=== PATIENT | male | born 1945 | race Caucasian/White ===

== ENCOUNTER 2016-10-18 15:23 | Inpatient (IN) | payer MEDICARE, OTHER ==
[~2016-10-18] VITALS: Ht 160 cm; Wt 93.0 kg
[~2016-10-18 15:23] MED LIST: CELE200C; FINA5TAB4; GEMF600T3 PO; HYOS0.12; INDO50CA82 PO; LISI10TA6; LOPE2CAP PO; OMEP20TA44; SERT-274 PO; TAM04C; TRAM50TA2 PO
[2016-10-18 16:06] LABS: Urine RBC None Seen /hpf (0 - 3)
[2016-10-18 16:15] LABS: Basophils # (auto) 0.1 uL; Basophils % (auto) 0.7 % (0.0-2.0); Eosinophils # (auto) 0.3 uL; Eosinophils % (auto) 3.5 % (0.0-7.0); Hematocrit 41.3 % (41.0-53.0); Hemoglobin 13.9 g/dL (13.5-17.5); Lymphocytes # (auto) 1.2 uL; Mean Corpuscular Hgb Conc. 33.5 g/dL (32.0-36.0); Mean Corpuscular Volume 89.4 fL (80.0-100.0); Mean Platelet Volume 10.6 fL (7.4-10.4); Monocytes # (auto) 0.4 uL; Monocytes % (auto) 5.7 % (0.0-12.0); Neutrophils # (auto) 5.9 uL; Neutrophils % (auto) 75.1 % (37.0-80.0); Platelet Count (auto) 274 10^3/uL (140-450); Red Cell Distribution Width 14.2 % (11.6-16.0); White Blood Cell 7.9 10^3/uL (4.4-10.8)
[2016-10-18 16:22] LABS: Albumin 4.4 g/dL (3.4-5.0)
[2016-10-18 16:24] LABS: BUN/Creatinine Ratio 22.4
[2016-10-18 16:26] LABS: Bilirubin, Total 0.5 mg/dL (0.2-1.0)
[2016-10-18 16:46] LABS: Urine Bilirubin Negative (Negative); Urine Blood Negative /uL (Negative); Urine Color Yellow (Yellow); Urine Glucose Normal (Normal); Urine Hyaline Cast FEW /lpf (0 - 2); Urine Ketone Negative (Negative); Urine Mucus FEW (None Seen); Urine Nitrite Negative (Negative); Urine Urobilinogen Normal (Negative); Urine pH 5.5 (5.0-8.0)
[2016-10-18] MEDS ORDERED: HYDROmorphone HCL 2 MG/ML VL IV ONE (22:30)
[2016-10-18] MEDS ORDERED: ONDANSETRON HCL 4 MG/2 ML VIAL IV ONE (22:30)
[2016-10-19] MEDS ORDERED: SODIUM CHLORIDE 0.9% 1,000 ML IV SCH (00:55)
[2016-10-19] MEDS ORDERED: traMADol HCL 50 MG TAB PO PRN (01:00)
[2016-10-19] MEDS ORDERED: LOPERAMIDE HCL 2 MG CAP PO PRN (01:00)
[2016-10-19] MEDS ORDERED: ONDANSETRON HCL 4 MG/2 ML VIAL IV ONE ×2 (01:15)
[2016-10-19] MEDS ORDERED: ASPirin 81 mg TAB PO ONE (01:15)
[2016-10-19] MEDS ORDERED: ONDANSETRON HCL 4 MG/2 ML VIAL IV PRN (01:15)
[2016-10-19] MEDS ORDERED: MORPHINE SULFATE 4 MG/ML SYRG IV PRN (01:15)
[2016-10-19] MEDS ORDERED: MORPHINE SULFATE 4 MG/ML SYRG IV ONE (01:15)
[2016-10-19 05:16] VITALS: BP 144/77
[2016-10-19 09:00] VITALS: BP 146/98
[2016-10-19] MEDS ORDERED: PANTOPRAZOLE SODIUM 40 MG/10 ML VIAL IV SCH (10:00)
[2016-10-19] MEDS ORDERED: INDOMETHACIN 25 MG CAP PO SCH (10:00)
[2016-10-19] MEDS ORDERED: FINASTERIDE 5 MG TAB PO SCH (10:00)
[2016-10-19] MEDS ORDERED: LISINOPRIL 20 MG TAB PO SCH (10:00)
[2016-10-19] MEDS ORDERED: ENOXAPARIN SOD 40 MG/0.4 ML SYRINGE SC SCH (10:00)
[2016-10-19] MEDS ORDERED: GEMFIBROZIL 600 MG TAB PO SCH (10:00)
[2016-10-19] MEDS ORDERED: SERTRALINE HCL 50 MG TAB PO SCH (10:00)
[2016-10-19] MEDS ORDERED: ENOXAPARIN SOD 30 MG/0.3 ML SYRINGE SC SCH (10:00)
[2016-10-19] MEDS ORDERED: COLCHICINE 0.6 MG TAB/CAP PO SCH (10:00)
[2016-10-19 13:00] VITALS: BP 160/90
[2016-10-19 14:48] VITALS: BP 158/92
[2016-10-19] MEDS ORDERED: TAMSULOSIN HYDROCHLORIDE 0.4 MG CAP PO SCH (18:00)
== END 2016-10-19 16:42 | disposition home or self-care (01) | DRG 395 ==
LOC: ER 15:24 → OVERFLOW 15:25 → WEST WING 10-19 01:45
PROVIDERS: ADMIT Family Medicine; ATTEND Internal Medicine
DX: K42.9 Umbilical hernia without obstruction or gangrene (principal); I10 Essential (primary) hypertension; E78.5 Hyperlipidemia, unspecified; F32.9 Major depressive disorder, single episode, unspecified; F41.9 Anxiety disorder, unspecified; G47.30 Sleep apnea, unspecified; J44.9 Chronic obstructive pulmonary disease, unspecified; M06.9 Rheumatoid arthritis, unspecified; K40.20 Bilateral inguinal hernia, without obstruction or gangrene, not specified as recurrent; M10.9 Gout, unspecified; M19.90 Unspecified osteoarthritis, unspecified site; N40.0 Benign prostatic hyperplasia without lower urinary tract symptoms; N50.819 Testicular pain, unspecified; Z87.442 Personal history of urinary calculi; Z79.899 Other long term (current) drug therapy; Z88.0 Allergy status to penicillin; Z98.890 Other specified postprocedural states; Z68.36 Body mass index [BMI] 36.0-36.9, adult
CPT/HCPCS: 36415; 74176; 80053; 81001; 82150; 83690; 84484; 85025; 85049; 93005; 96374; 96375; 96376; C9113; J2405

== ENCOUNTER → 2016-11-21 | Outpatient (CLI) | payer MEDICARE, OTHER ==
[~2016-11-21] VITALS: Ht 160 cm; Wt 92.5 kg
[~2016-11-21] MED LIST changes: +ADENOSINE 78 MG in GIVE UN-DILUTED 0 ML IV ONE; +ALBUTEROL SULF 2.5 MG/0.5ML(0.5%) NEB SOLN ONE; +AMINOPHYLLINE 250 MG/10 ML VL IV ONE; +IPRATROPIUM BROM 0.5 MG/2.5ML INH SOL ONE
== END | disposition home or self-care (01) ==
LOC: XY 07:46
PROVIDERS: ATTEND Internal Medicine Cardiovascular Disease
DX: Z01.818 Encounter for other preprocedural examination (principal); I34.2 Nonrheumatic mitral (valve) stenosis; I35.0 Nonrheumatic aortic (valve) stenosis
CPT/HCPCS: 78452; 93017; 93306; A9500; J0153; J0280

== ENCOUNTER → 2016-12-03 | Outpatient (CLI) | payer MEDICARE, OTHER ==
[~2016-12-03] MED LIST changes: -ADENOSINE 78 MG in GIVE UN-DILUTED 0 ML IV ONE; +ALBUAER3 IN; -ALBUTEROL SULF 2.5 MG/0.5ML(0.5%) NEB SOLN ONE; -AMINOPHYLLINE 250 MG/10 ML VL IV ONE; +AMLO10TA2 PO; -FINA5TAB4; +FINA5TAB4 OR; -HYOS0.12; +HYOS0.12 OR; -IPRATROPIUM BROM 0.5 MG/2.5ML INH SOL ONE; -LISI10TA6; +LISI10TA6 OR; -OMEP20TA44; +OMEP20TA44 OR; -TAM04C; +TAM04C OR
[2016-12-03 13:06] LABS: Basophils # (auto) 0.1 uL; Basophils % (auto) 1.1 % (0.0-2.0); Eosinophils # (auto) 0.3 uL; Eosinophils % (auto) 5.8 % (0.0-7.0); Hematocrit 37.1 % (41.0-53.0); Lymphocytes # (auto) 1.2 uL; Lymphocytes % (auto) 22.8 % (10.0-50.0); Mean Corpuscular Volume 88.6 fL (80.0-100.0); Mean Platelet Volume 10.7 fL (7.4-10.4); Monocytes # (auto) 0.4 uL; Monocytes % (auto) 7.9 % (0.0-12.0); Neutrophils # (auto) 3.2 uL; Neutrophils % (auto) 62.4 % (37.0-80.0); Platelet Count (auto) 238 10^3/uL (140-450); Red Cell Distribution Width 14.6 % (11.6-16.0); White Blood Cell 5.2 10^3/uL (4.4-10.8)
[2016-12-03 13:20] LABS: INR 1.03 (0.9-1.15); Partial Thromboplastin Time 28.1 sec (22.64-33.71); Prothrombin Time 10.6 sec (9.37-12.3)
[2016-12-03 13:29] LABS: Urine Bilirubin Negative (Negative); Urine Blood Negative /uL (Negative); Urine Color Yellow (Yellow); Urine Glucose Normal (Normal); Urine Ketone Negative (Negative); Urine Nitrite Negative (Negative); Urine RBC 1 /hpf (0 - 3); Urine Urobilinogen Normal (Negative)
[2016-12-03 13:50] LABS: Albumin 4.2 g/dL (3.4-5.0); BUN/Creatinine Ratio 22.5; Bilirubin, Total 0.3 mg/dL (0.2-1.0); Calcium 9.3 mg/dL (8.5-10.1); Potassium 4.1 mmol/L (3.5-5.1); Total Protein 7.7 g/dL (6.4-8.2)
== END | disposition home or self-care (01) ==
LOC: LAB 11:05
PROVIDERS: ATTEND Surgery
DX: Z01.818 Encounter for other preprocedural examination (principal)
CPT/HCPCS: 36415; 80053; 81001; 85025; 85610; 85730

== ENCOUNTER → 2016-12-05 | Day surgery (SDC) | payer MEDICARE, OTHER ==
[~2016-12-05] VITALS: Ht 160 cm; Wt 95.3 kg
[~2016-12-05] MED LIST changes: +ALBUTEROL SULF 2.5 MG/0.5ML(0.5%) NEB SOLN NEB STA; +ALBUTEROL SULF 2.5 MG/0.5ML(0.5%) NEB SOLN ONE; +BUPIVACAINE 0.5% MPF INJ 30ML SDV IJ ONE; -CELE200C; +DEXAMETHASONE SOD PHOS 10MG/1ML VIAL INJ IV ONE; +ETOMIDATE (2MG/ML) 20ML VIAL IV ONE; +GLYCOPYRROLATE 0.2 MG/ML 1ML VIAL IV ONE; +HYDROmorphone HCL 2 MG/ML VL IV PRN; -INDO50CA82 PO; +IPRATROPIUM BROM 0.5 MG/2.5ML INH SOL NEB STA; +IPRATROPIUM BROM 0.5 MG/2.5ML INH SOL ONE; +LABETALOL HCL 5 MG/ML 4ML SYRINGE IV PRN; +LIDOCAINE 1% HCL (LOCAL ANESTH.) INJ 20ML MDV ONE; -LOPE2CAP PO; +MIDAZOLAM HCL 1MG/1ML-2 ML VIAL ONE; +NEOSTIGMINE 1 MG/ML INJ (10mg/10ML VIAL) IV ONE; +ONDANSETRON HCL 4 MG/2 ML VIAL IV ONE; +ONDANSETRON HCL 4 MG/2 ML VIAL ONE; +ROCURONIUM 10MG/ML 10ML VIAL IV ONE; -TRAM50TA2 PO; +ceFAZolin 1GM VL ONE; +ceFAZolin 1GM/50ML D5W 50 ML IV ONE; +fentaNYL CITRATE 100 MCG/2 ML VL ONE
[2016-12-05 09:38] VITALS: BP 159/85
== END | disposition home or self-care (01) ==
LOC: SUR 06:10
DX: K42.9 Umbilical hernia without obstruction or gangrene (principal); J45.909 Unspecified asthma, uncomplicated; F41.9 Anxiety disorder, unspecified; F32.9 Major depressive disorder, single episode, unspecified; C61 Malignant neoplasm of prostate; B19.10 Unspecified viral hepatitis B without hepatic coma; H40.9 Unspecified glaucoma; I10 Essential (primary) hypertension; I49.5 Sick sinus syndrome; E03.9 Hypothyroidism, unspecified; I49.9 Cardiac arrhythmia, unspecified; G47.33 Obstructive sleep apnea (adult) (pediatric); K21.9 Gastro-esophageal reflux disease without esophagitis; M19.90 Unspecified osteoarthritis, unspecified site; E66.01 Morbid (severe) obesity due to excess calories; Z87.891 Personal history of nicotine dependence; Z95.0 Presence of cardiac pacemaker
CPT/HCPCS: 49585; 94640; C1781; J0690; J1100; J1170; J2001; J2250; J2405; J3010; J3490

== ENCOUNTER → 2017-06-04 | Outpatient (CLI) | payer MEDICARE, OTHER ==
[~2017-06-04] MED LIST changes: -ALBUTEROL SULF 2.5 MG/0.5ML(0.5%) NEB SOLN NEB STA; -ALBUTEROL SULF 2.5 MG/0.5ML(0.5%) NEB SOLN ONE; -BUPIVACAINE 0.5% MPF INJ 30ML SDV IJ ONE; -DEXAMETHASONE SOD PHOS 10MG/1ML VIAL INJ IV ONE; -ETOMIDATE (2MG/ML) 20ML VIAL IV ONE; -GLYCOPYRROLATE 0.2 MG/ML 1ML VIAL IV ONE; -HYDROmorphone HCL 2 MG/ML VL IV PRN; -IPRATROPIUM BROM 0.5 MG/2.5ML INH SOL NEB STA; -IPRATROPIUM BROM 0.5 MG/2.5ML INH SOL ONE; -LABETALOL HCL 5 MG/ML 4ML SYRINGE IV PRN; -LIDOCAINE 1% HCL (LOCAL ANESTH.) INJ 20ML MDV ONE; -MIDAZOLAM HCL 1MG/1ML-2 ML VIAL ONE; -NEOSTIGMINE 1 MG/ML INJ (10mg/10ML VIAL) IV ONE; -ONDANSETRON HCL 4 MG/2 ML VIAL IV ONE; -ONDANSETRON HCL 4 MG/2 ML VIAL ONE; -ROCURONIUM 10MG/ML 10ML VIAL IV ONE; -ceFAZolin 1GM VL ONE; -ceFAZolin 1GM/50ML D5W 50 ML IV ONE; -fentaNYL CITRATE 100 MCG/2 ML VL ONE
[2017-06-04 11:34] LABS: BUN/Creatinine Ratio 26.4; Bilirubin, Total 0.5 mg/dL (0.2-1.0); Calcium 9.1 mg/dL (8.5-10.1); Potassium 3.9 mmol/L (3.5-5.1); Total Protein 7.2 g/dL (6.4-8.2); Uric Acid 8.2 mg/dL (3.5-7.2)
== END | disposition home or self-care (01) ==
LOC: LAB 08:46
DX: D64.9 Anemia, unspecified (principal); M25.50 Pain in unspecified joint; I10 Essential (primary) hypertension; M10.00 Idiopathic gout, unspecified site; M19.90 Unspecified osteoarthritis, unspecified site; J44.9 Chronic obstructive pulmonary disease, unspecified; Z79.899 Other long term (current) drug therapy
CPT/HCPCS: 36415; 80053; 84550

== ENCOUNTER → 2017-11-05 | Outpatient (CLI) | payer MEDICARE, OTHER ==
[2017-11-05 09:08] LABS: Urine WBC None Seen /hpf (0 - 3)
[2017-11-05 09:16] LABS: Basophils # (auto) 0.1 uL; Basophils % (auto) 1.2 % (0.0-2.0); Eosinophils # (auto) 0.3 uL; Eosinophils % (auto) 5.4 % (0.0-7.0); Hematocrit 37.6 % (41.0-53.0); Hemoglobin 13.1 g/dL (13.5-17.5); Lymphocytes % (auto) 18.1 % (10.0-50.0); Mean Corpuscular Hemoglobin 31.1 pg (28.0-32.0); Mean Corpuscular Hgb Conc. 34.9 g/dL (32.0-36.0); Mean Corpuscular Volume 89.3 fL (80.0-100.0); Monocytes # (auto) 0.4 uL; Monocytes % (auto) 7.2 % (0.0-12.0); Neutrophils # (auto) 3.7 uL; Neutrophils % (auto) 68.1 % (37.0-80.0); Platelet Count (auto) 215 10^3/uL (140-450); Red Blood Cells 4.21 10^6/uL (4.5-5.90); Red Cell Distribution Width 14.5 % (11.8-14.3); White Blood Cell 5.4 10^3/uL (4.4-10.8)
[2017-11-05 09:33] LABS: Urine Bacteria NONE SEEN /hpf (None Seen); Urine Blood Negative /uL (Negative); Urine Specific Gravity 1.014 (1.001-1.035)
[2017-11-05 09:36] LABS: BUN/Creatinine Ratio 23.8; Bilirubin, Total 0.4 mg/dL (0.2-1.0); Total Protein 7.7 g/dL (6.4-8.2); Uric Acid 8.2 mg/dL (3.5-7.2)
== END | disposition home or self-care (01) ==
LOC: LAB 08:40
PROVIDERS: ATTEND Family Medicine
DX: E78.5 Hyperlipidemia, unspecified (principal); M10.00 Idiopathic gout, unspecified site
CPT/HCPCS: 36415; 80053; 80061; 81001; 84550; 85025

== ENCOUNTER → 2017-12-09 | Outpatient (CLI) | payer MEDICARE, OTHER ==
[2017-12-09 08:39] LABS: Basophils # (auto) 0.1 uL; Basophils % (auto) 1.3 % (0.0-2.0); Eosinophils # (auto) 0.3 uL; Eosinophils % (auto) 4.5 % (0.0-7.0); Hematocrit 36.1 % (41.0-53.0); Hemoglobin 12.4 g/dL (13.5-17.5); Lymphocytes # (auto) 0.8 uL; Lymphocytes % (auto) 13.3 % (10.0-50.0); Mean Corpuscular Hemoglobin 31.7 pg (28.0-32.0); Mean Corpuscular Hgb Conc. 34.5 g/dL (32.0-36.0); Mean Corpuscular Volume 91.8 fL (80.0-100.0); Monocytes # (auto) 0.3 uL; Monocytes % (auto) 5.6 % (0.0-12.0); Neutrophils # (auto) 4.6 uL; Neutrophils % (auto) 75.3 % (37.0-80.0); Platelet Count (auto) 258 10^3/uL (140-450); Red Blood Cells 3.93 10^6/uL (4.5-5.90); Red Cell Distribution Width 16.3 % (11.8-14.3); White Blood Cell 6.1 10^3/uL (4.4-10.8)
[2017-12-09 09:13] LABS: Alanine Aminotransferase 47 U/L (16-61); Aspartate Aminotransferase 30 U/L (15-37)
== END | disposition home or self-care (01) ==
LOC: LAB 08:19
PROVIDERS: ATTEND Family Medicine
DX: M06.9 Rheumatoid arthritis, unspecified (principal)
CPT/HCPCS: 36415; 84450; 84460; 85025

== ENCOUNTER 2018-06-02 14:53 | Emergency (ER) | payer MEDICARE, OTHER ==
[~2018-06-02] VITALS: Ht 157.5 cm; Wt 90.7 kg
[2018-06-02 16:36] LABS: Hematocrit 35.7 % (41.0-53.0); Hemoglobin 12.4 g/dL (13.5-17.5); Mean Corpuscular Hemoglobin 30.4 pg (28.0-32.0); Mean Corpuscular Hgb Conc. 34.6 g/dL (32.0-36.0); Mean Corpuscular Volume 87.9 fL (80.0-100.0); Platelet Count (auto) 317 10^3/uL (140-450); Red Blood Cells 4.06 10^6/uL (4.5-5.90); Red Cell Distribution Width 13.9 % (11.8-14.3); White Blood Cell 12.2 10^3/uL (4.4-10.8)
[2018-06-02 16:40] LABS: Basophils % (manual) 0 (0.0-2.0); Blast Cells 0; Eosinophils % (manual) 0 (0-7); Metamyelocytes % 0; Myelocytes % 0; Promyelocytes % 0; Reactive Lymphocytes 0
[2018-06-02 16:41] LABS: Alanine Aminotransferase 28 U/L (16-61); Albumin 3.2 g/dL (3.4-5.0); Anion Gap 12 (5-15); Aspartate Aminotransferase 16 U/L (15-37); BUN/Creatinine Ratio 20.2; Blood Urea Nitrogen 24 mg/dL (7-18); Calcium 8.5 mg/dL (8.5-10.1); Carbon Dioxide 20 mmol/L (21-32); Chloride 105 mmol/L (98-107); GFR African American 77 mL/min; GFR Non-African American 64 mL/min; Glucose 103 mg/dL (74-106); Sodium 137 mmol/L (136-145)
[2018-06-02 16:46] LABS: Alkaline Phosphatase 116 U/L (45-117); Bilirubin, Total 0.4 mg/dL (0.2-1.0); Total Protein 7.6 g/dL (6.4-8.2)
[2018-06-02] MEDS ORDERED: LEVOFLOXACIN 500MG 100 ML IV ONE (17:15)
[2018-06-02 17:21] LABS: INR 1.03 (0.9-1.15); Partial Thromboplastin Time 34.6 sec (23.78-33.04)
[2018-06-02] MEDS ORDERED: LEVOFLOXACIN 500 MG TAB PO ONE (17:30)
[2018-06-02 17:38] LABS: Band Neutrophils % (manual) 5; Lymphocytes % (manual) 8 (10.0-50.0)
[2018-06-02 17:39] LABS: Monocytes % (manual) 5 (0-12)
[2018-06-02 17:55] VITALS: BP 131/63
[2018-06-02 19:01] LABS: Urine Bacteria NONE SEEN /hpf (None Seen); Urine Blood Negative /uL (Negative); Urine Mucus FEW (None Seen); Urine Specific Gravity 1.014 (1.001-1.035); Urine WBC 1 /hpf (0 - 3)
== END 2018-06-02 18:04 | disposition home or self-care (01) ==
LOC: ER 14:58
DX: R53.1 Weakness (principal); I10 Essential (primary) hypertension; J40 Bronchitis, not specified as acute or chronic; J44.9 Chronic obstructive pulmonary disease, unspecified; E78.5 Hyperlipidemia, unspecified; M19.90 Unspecified osteoarthritis, unspecified site; R06.02 Shortness of breath; Z87.442 Personal history of urinary calculi; Z88.0 Allergy status to penicillin
CPT/HCPCS: 36415; 71045; 74176; 80053; 81001; 84484; 85007; 85027; 85610; 85730

== ENCOUNTER → 2018-07-03 | Outpatient (CLI) | payer MEDICARE, OTHER ==
[~2018-07-03] MED LIST changes: +AMLO10TA12 PO; -AMLO10TA2 PO; -GEMF600T3 PO; +GEMF600T7 PO
== END | disposition home or self-care (01) ==
LOC: LAB 11:12
PROVIDERS: ATTEND Internal Medicine Gastroenterology
DX: R10.9 Unspecified abdominal pain (principal); I10 Essential (primary) hypertension
CPT/HCPCS: 82784; 83516; 86255; 87045; 87493; 87899

== ENCOUNTER 2018-08-11 07:42 | Day surgery (SDC) | payer MEDICARE, OTHER ==
[2018-08-07 11:09] LABS: Basophils # (auto) 0.2 uL; Basophils % (auto) 2.3 % (0.0-2.0); Eosinophils # (auto) 0.4 uL; Eosinophils % (auto) 5.8 % (0.0-7.0); Hematocrit 31.5 % (41.0-53.0); Lymphocytes # (auto) 0.9 uL; Mean Corpuscular Hemoglobin 27.2 pg (28.0-32.0); Mean Corpuscular Hgb Conc. 31.8 g/dL (32.0-36.0); Mean Corpuscular Volume 85.6 fL (80.0-100.0); Monocytes # (auto) 0.4 uL; Neutrophils # (auto) 5.1 uL; Neutrophils % (auto) 72.9 % (37.0-80.0); Platelet Count (auto) 287 10^3/uL (140-450); Red Blood Cells 3.68 10^6/uL (4.5-5.90); Red Cell Distribution Width 17.2 % (11.8-14.3)
[2018-08-07 11:17] LABS: INR 0.97 (0.9-1.15); Partial Thromboplastin Time 32.9 sec (23.78-33.04); Prothrombin Time 10.4 sec (9.27-12.13)
[2018-08-07 14:38] LABS: Urine WBC None Seen /hpf (0 - 3)
[2018-08-07 14:45] LABS: Urine Bacteria NONE SEEN /hpf (None Seen); Urine Blood Negative /uL (Negative); Urine Specific Gravity 1.017 (1.001-1.035)
[~2018-08-11] VITALS: Ht 157.5 cm; Wt 86.2 kg
[2018-08-11] MEDS ORDERED: SIMETHICONE 40 MG/0.6 ML ORAL DROP ONE (08:13)
[2018-08-11] MEDS ORDERED: FLUMAZENIL 0.1 MG/ML INJ 10ML MDV IV ONE (08:13)
[2018-08-11] MEDS ORDERED: NALOXONE HCL 0.4 MG/ML VIAL ONE (08:13)
[2018-08-11] MEDS ORDERED: diphenhdrAMINE 50mg/ml (500mg/10ml VIAL) ONE (08:14)
[2018-08-11] MEDS ORDERED: SODIUM CHLORIDE LOCK 10 ML ONE (08:14)
[2018-08-11] MEDS: MIDAZOLAM HCL 5 MG/ML-1ML VIAL ONE ×2 (08:53→08:56)
[2018-08-11] MEDS: fentaNYL CITRATE 100 MCG/2 ML VL ONE ×2 (08:53→08:56)
[2018-08-11 09:42] VITALS: BP 150/71
== END 2018-08-11 09:42 | disposition home or self-care (01) ==
LOC: GI 07:42
PROVIDERS: ATTEND Internal Medicine Gastroenterology
DX: K57.30 Diverticulosis of large intestine without perforation or abscess without bleeding (principal); K64.8 Other hemorrhoids; J44.9 Chronic obstructive pulmonary disease, unspecified; E66.9 Obesity, unspecified; G47.30 Sleep apnea, unspecified; F32.9 Major depressive disorder, single episode, unspecified; F41.9 Anxiety disorder, unspecified; H26.9 Unspecified cataract; Z82.49 Family history of ischemic heart disease and other diseases of the circulatory system; Z95.0 Presence of cardiac pacemaker; Z98.890 Other specified postprocedural states; Z88.0 Allergy status to penicillin; Z68.34 Body mass index [BMI] 34.0-34.9, adult; Z85.46 Personal history of malignant neoplasm of prostate
CPT/HCPCS: 36415; 45380; 81001; 85025; 85610; 85730; G0500; J2250; J3010; J7030; J1200

== ENCOUNTER → 2018-12-08 | Outpatient (CLI) | payer MEDICARE, BC ==
[~2018-12-08] MED LIST changes: +ALLO100T PO; +AML5T PO; +FINA5TAB4 PO; +HYOS0.1269 PO; +LACT10CA2 OR; +LOP2C PO; +LOPE1TAB9 PO; +SERT-160 PO; -SERT-274 PO
[2018-12-08 09:37] LABS: Basophils # (auto) 0.1 uL; Eosinophils # (auto) 0.3 uL; Eosinophils % (auto) 7.3 % (0.0-7.0); Hematocrit 31.4 % (41.0-53.0); Hemoglobin 10.2 g/dL (13.5-17.5); Lymphocytes # (auto) 0.6 uL; Lymphocytes % (auto) 15.5 % (10.0-50.0); Mean Corpuscular Hemoglobin 28.4 pg (28.0-32.0); Mean Corpuscular Hgb Conc. 32.5 g/dL (32.0-36.0); Mean Corpuscular Volume 87.3 fL (80.0-100.0); Monocytes # (auto) 0.3 uL; Neutrophils # (auto) 2.8 uL; Neutrophils % (auto) 68.2 % (37.0-80.0); Platelet Count (auto) 251 10^3/uL (140-450); Red Cell Distribution Width 18.6 % (11.8-14.3)
[2018-12-08 09:42] LABS: Urine Bacteria FEW /hpf (None Seen); Urine Blood Negative /uL (Negative); Urine Specific Gravity 1.014 (1.001-1.035); Urine WBC 1 /hpf (0 - 3)
[2018-12-08 10:01] LABS: INR 0.95 (0.9-1.15); Partial Thromboplastin Time 30.4 sec (23.78-33.04); Prothrombin Time 10.2 sec (9.27-12.13)
[2018-12-08 10:13] LABS: Potassium 3.5 mmol/L (3.5-5.1)
[2018-12-08 10:24] LABS: Albumin 2.9 g/dL (3.4-5.0); BUN/Creatinine Ratio 22.5; Bilirubin, Total 0.3 mg/dL (0.2-1.0); Calcium 8.7 mg/dL (8.5-10.1); Magnesium 1.7 mg/dL (1.6-2.6); Total Protein 6.9 g/dL (6.4-8.2)
== END | disposition home or self-care (01) ==
LOC: LAB 09:06
PROVIDERS: ATTEND Internal Medicine
DX: K92.2 Gastrointestinal hemorrhage, unspecified (principal); R94.6 Abnormal results of thyroid function studies; R79.89 Other specified abnormal findings of blood chemistry
CPT/HCPCS: 36415; 80053; 80061; 81001; 83036; 83735; 84439; 84443; 85025; 85610; 85730; 87045; 87493; 87899

== ENCOUNTER → 2019-01-12 | Outpatient (CLI) | payer MEDICARE ==
[2019-01-12 15:41] LABS: Albumin 3.7 g/dL (3.4-5.0); Potassium 3.9 mmol/L (3.5-5.1)
[2019-01-12 15:43] LABS: BUN/Creatinine Ratio 19.3
[2019-01-12 15:49] LABS: Bilirubin, Total 0.2 mg/dL (0.2-1.0); Total Protein 7.9 g/dL (6.4-8.2)
== END | disposition home or self-care (01) ==
LOC: LAB 13:47
PROVIDERS: ATTEND Internal Medicine
DX: R74.8 Abnormal levels of other serum enzymes (principal)
CPT/HCPCS: 36415; 80053

== ENCOUNTER → 2019-06-05 | Outpatient (CLI) | payer BC ==
[~2019-06-05] MED LIST changes: -AMLO10TA12 PO; +AMLO10TA13 PO; -OMEP20TA44 OR; +PANT40TA2 PO
[2019-06-05 09:22] LABS: Basophils # (auto) 0.1 uL; Basophils % (auto) 1.1 % (0.0-2.0); Eosinophils # (auto) 0.2 uL; Eosinophils % (auto) 3.3 % (0.0-7.0); Hematocrit 35.8 % (41.0-53.0); Hemoglobin 12.1 g/dL (13.5-17.5); Lymphocytes # (auto) 0.8 uL; Lymphocytes % (auto) 13.2 % (10.0-50.0); Mean Corpuscular Hemoglobin 30.5 pg (28.0-32.0); Mean Corpuscular Hgb Conc. 33.9 g/dL (32.0-36.0); Monocytes # (auto) 0.4 uL; Monocytes % (auto) 6.5 % (0.0-12.0); Neutrophils # (auto) 4.8 uL; Neutrophils % (auto) 75.9 % (37.0-80.0); Platelet Count (auto) 255 10^3/uL (140-450); Red Blood Cells 3.98 10^6/uL (4.5-5.90); White Blood Cell 6.3 10^3/uL (4.4-10.8)
[2019-06-05 09:37] LABS: Calcium 9.2 mg/dL (8.5-10.1); Potassium 3.5 mmol/L (3.5-5.1)
[2019-06-05 09:43] LABS: BUN/Creatinine Ratio 27.3; Bilirubin, Total 0.5 mg/dL (0.2-1.0); Total Protein 7.7 g/dL (6.4-8.2)
== END | disposition home or self-care (01) ==
LOC: LAB 08:53
PROVIDERS: ATTEND Internal Medicine Gastroenterology
DX: K29.90 Gastroduodenitis, unspecified, without bleeding (principal); J44.9 Chronic obstructive pulmonary disease, unspecified; I11.0 Hypertensive heart disease with heart failure; I50.32 Chronic diastolic (congestive) heart failure; D50.0 Iron deficiency anemia secondary to blood loss (chronic); Z79.899 Other long term (current) drug therapy
CPT/HCPCS: 36415; 80053; 80061; 82607; 83036; 85025

== ENCOUNTER → 2019-08-11 | Outpatient (CLI) | payer BC, MEDICARE, OTHER | END | disposition home or self-care (01) | LOC: XYW 15:44 | PROVIDERS: ATTEND Internal Medicine | DX: I08.0 Rheumatic disorders of both mitral and aortic valves (principal); I11.0 Hypertensive heart disease with heart failure; I50.9 Heart failure, unspecified; I27.20 Pulmonary hypertension, unspecified | CPT/HCPCS: 93306 ==

== ENCOUNTER → 2019-11-10 | Outpatient (CLI) | payer MEDICARE ==
[2019-11-10 11:33] LABS: BUN/Creatinine Ratio 26.2; Calcium 9.6 mg/dL (8.5-10.1); Potassium 3.1 mmol/L (3.5-5.1)
== END | disposition home or self-care (01) ==
LOC: LAB 10:01
PROVIDERS: ATTEND Internal Medicine
DX: I10 Essential (primary) hypertension (principal)
CPT/HCPCS: 36415; 80048

== ENCOUNTER → 2019-12-01 | Outpatient (CLI) | payer MEDICARE ==
[2019-12-01 12:36] LABS: Albumin 3.9 g/dL (3.4-5.0); Calcium 9.3 mg/dL (8.5-10.1); Magnesium 2.1 mg/dL (1.6-2.6); Potassium 4.4 mmol/L (3.5-5.1)
[2019-12-01 12:40] LABS: BUN/Creatinine Ratio 17.6; Bilirubin, Total 0.5 mg/dL (0.2-1.0); Total Protein 7.6 g/dL (6.4-8.2)
== END | disposition home or self-care (01) ==
LOC: LAB 12:00
PROVIDERS: ATTEND Internal Medicine
DX: I10 Essential (primary) hypertension (principal)
CPT/HCPCS: 36415; 80053; 83735

== ENCOUNTER → 2020-02-02 | Outpatient (CLI) | payer MEDICARE | END | disposition home or self-care (01) | LOC: XY 08:24 | PROVIDERS: ATTEND Internal Medicine | DX: I65.23 Occlusion and stenosis of bilateral carotid arteries (principal); I25.10 Atherosclerotic heart disease of native coronary artery without angina pectoris | CPT/HCPCS: 93886 ==

== ENCOUNTER → 2020-02-08 | Outpatient (CLI) | payer MEDICARE ==
[2020-02-08 09:23] LABS: Albumin 3.6 g/dL (3.4-5.0); Calcium 9.2 mg/dL (8.5-10.1); Potassium 3.8 mmol/L (3.5-5.1)
[2020-02-08 09:27] LABS: BUN/Creatinine Ratio 21.4; Bilirubin, Total 0.5 mg/dL (0.2-1.0); Total Protein 7.4 g/dL (6.4-8.2)
== END | disposition home or self-care (01) ==
LOC: LAB 08:45
PROVIDERS: ATTEND Internal Medicine
DX: I10 Essential (primary) hypertension (principal)
CPT/HCPCS: 36415; 80053

== ENCOUNTER → 2020-02-09 | Outpatient (CLI) | payer MEDICARE ==
[2020-02-09 15:38] LABS: Basophils # (auto) 0 10 ^3/uL (0-0.2); Basophils % (auto) 0.5 % (0.0-2.0); Eosinophils # (auto) 0.1 10 ^3/uL (0-0.8); Eosinophils % (auto) 1.4 % (0.0-7.0); Lymphocytes # (auto) 0.5 10 ^3/uL (0.4-5.4); Lymphocytes % (auto) 5.7 % (10.0-50.0); Mean Corpuscular Hemoglobin 33.9 pg (28.0-32.0); Mean Corpuscular Hgb Conc. 34.2 g/dL (32.0-36.0); Mean Corpuscular Volume 99.2 fL (80.0-100.0); Monocytes # (auto) 0.5 10 ^3/uL (0-1.3); Neutrophils % (auto) 86.4 % (37.0-80.0); Platelet Count (auto) 256 10^3/uL (140-450); Red Blood Cells 3.83 10^6/uL (4.5-5.90); Red Cell Distribution Width 16.1 % (11.8-14.3); White Blood Cell 8.1 10^3/uL (4.4-10.8)
[2020-02-09 16:20] LABS: Free T4 (Free Thyroxine) 0.61 ng/dL (0.89-1.76)
[2020-02-09 16:21] LABS: Folate (Folic Acid) > 24.00 ng/mL (5.38-24)
== END | disposition home or self-care (01) ==
LOC: LAB 15:20
PROVIDERS: ATTEND Internal Medicine
DX: D64.9 Anemia, unspecified (principal)
CPT/HCPCS: 36415; 82607; 82746; 84439; 84443; 85025

== ENCOUNTER → 2020-02-18 | Outpatient (CLI) | payer MEDICARE | END | disposition home or self-care (01) | LOC: LAB 09:48 | PROVIDERS: ATTEND Internal Medicine Gastroenterology | DX: R19.7 Diarrhea, unspecified (principal) | CPT/HCPCS: 82705; 87045; 87427; 87493 ==

== ENCOUNTER → 2020-11-28 | Outpatient (CLI) | payer OTHER ==
[~2020-11-28] MED LIST changes: +AMLO-496 PO; -AMLO10TA13 PO; -HYOS0.1269 PO; +HYOS0.1293 PO; +LISI-648 OR; -LISI10TA6 OR
[2020-11-28 08:35] LABS: Basophils # (auto) 0.1 10 ^3/uL (0-0.2); Basophils % (auto) 2.2 % (0.0-2.0); Eosinophils # (auto) 0.2 10 ^3/uL (0-0.8); Eosinophils % (auto) 4.3 % (0.0-7.0); Hemoglobin 11.6 g/dL (13.5-17.5); Lymphocytes # (auto) 0.6 10 ^3/uL (0.4-5.4); Lymphocytes % (auto) 11.6 % (10.0-50.0); Mean Corpuscular Hemoglobin 31.5 pg (28.0-32.0); Mean Corpuscular Hgb Conc. 34.1 g/dL (32.0-36.0); Mean Corpuscular Volume 92.4 fL (80.0-100.0); Monocytes # (auto) 0.2 10 ^3/uL (0-1.3); Neutrophils # (auto) 3.8 10 ^3/uL (1.6-8.6); Neutrophils % (auto) 77.9 % (37.0-80.0); Nucleated Red Blood Cells % 0.1 %; Platelet Count (auto) 270 10^3/uL (140-450); Red Blood Cells 3.68 10^6/uL (4.5-5.90); Red Cell Distribution Width 15.5 % (11.8-14.3); White Blood Cell 4.9 10^3/uL (4.4-10.8)
[2020-11-28 09:42] LABS: Calcium 8.7 mg/dL (8.5-10.1); Potassium 3.3 mmol/L (3.5-5.1)
[2020-11-28 09:45] LABS: BUN/Creatinine Ratio 24.8
[2020-11-28 10:34] LABS: Free T4 (Free Thyroxine) 0.85 ng/dL (0.89-1.76)
[2020-11-28 10:35] LABS: Folate (Folic Acid) 9.4 ng/mL (5.38-24)
[2020-11-29 05:07] LABS: RPR Non Reactive (Non Reactive)
== END | disposition home or self-care (01) ==
LOC: LAB 08:05
PROVIDERS: ATTEND Internal Medicine
DX: I42.9 Cardiomyopathy, unspecified (principal); E03.9 Hypothyroidism, unspecified
CPT/HCPCS: 36415; 80048; 80061; 82607; 82746; 84439; 84443; 85025; 86592

== ENCOUNTER → 2020-12-06 | Outpatient (CLI) | payer OTHER | END | disposition home or self-care (01) | LOC: LAB 08:12 | PROVIDERS: ATTEND Internal Medicine Gastroenterology | DX: R10.9 Unspecified abdominal pain (principal) | CPT/HCPCS: 36415; 82565 ==

== ENCOUNTER → 2021-01-10 | Outpatient (CLI) | payer OTHER ==
[2021-01-10 09:09] LABS: Potassium 3.7 mmol/L (3.5-5.1)
[2021-01-10 09:19] LABS: BUN/Creatinine Ratio 28.9; Calcium 9.1 mg/dL (8.5-10.1)
== END | disposition home or self-care (01) ==
LOC: LAB 08:11
PROVIDERS: ATTEND Internal Medicine
DX: I42.9 Cardiomyopathy, unspecified (principal); Z79.899 Other long term (current) drug therapy
CPT/HCPCS: 36415; 80048; 83036

== ENCOUNTER 2021-01-11 14:17 | Inpatient (IN) | payer OTHER ==
[~2021-01-11] VITALS: Ht 170.2 cm; Wt 78.0 kg
[2021-01-11 16:00] LABS: Basophils # (auto) 0.1 10 ^3/uL (0-0.2); Basophils % (auto) 0.8 % (0.0-2.0); Eosinophils # (auto) 0.1 10 ^3/uL (0-0.8); Eosinophils % (auto) 1.7 % (0.0-7.0); Hematocrit 35.4 % (41.0-53.0); Hemoglobin 12.4 g/dL (13.5-17.5); Lymphocytes # (auto) 0.4 10 ^3/uL (0.4-5.4); Lymphocytes % (auto) 4.6 % (10.0-50.0); Mean Corpuscular Hemoglobin 32.6 pg (28.0-32.0); Mean Corpuscular Hgb Conc. 35.1 g/dL (32.0-36.0); Monocytes # (auto) 0.4 10 ^3/uL (0-1.3); Monocytes % (auto) 5.4 % (0.0-12.0); Neutrophils % (auto) 87.5 % (37.0-80.0); Nucleated Red Blood Cells % 0.1 %; Platelet Count (auto) 186 10^3/uL (140-450); Red Blood Cells 3.81 10^6/uL (4.5-5.90); Red Cell Distribution Width 17.4 % (11.8-14.3)
[2021-01-11 16:18] LABS: Albumin 3.5 g/dL (3.4-5.0); Calcium 8.9 mg/dL (8.5-10.1)
[2021-01-11 16:21] LABS: BUN/Creatinine Ratio 28.4
[2021-01-11 16:22] LABS: Bilirubin, Total 0.4 mg/dL (0.2-1.0); Total Protein 6.7 g/dL (6.4-8.2)
[2021-01-11] MEDS ORDERED: SODIUM CHLORIDE 0.9% 1,000 ML IV ONE ×2 (17:00→19:15)
[2021-01-11] MEDS ORDERED: FLUCONAZOLE 200MG/100ML 100 ML IV ONE (17:00)
[2021-01-11] MEDS ORDERED: cefTRIAXone 1GM/50ML D5W 50 ML IV ONE (18:15)
[2021-01-11] MEDS ORDERED: IOHEXOL 300 MG/ML 100ML BOTTLE IJ ONE (19:25)
[2021-01-11] MEDS ORDERED: ALBUTEROL SULF 2.5 MG/0.5ML(0.5%) NEB SOLN NEB PRN (21:45)
[2021-01-11] MEDS ORDERED: ACETAMINOPHEN 325 MG TAB PO PRN (21:45)
[2021-01-11] MEDS ORDERED: TEMAZEPAM 15 MG CAP PO PRN (21:45)
[2021-01-11] MEDS ORDERED: CLINDAMYCIN 300MG IV 50 ML IV SCH (22:00)
[2021-01-11 22:07] VITALS: BP 116/65
[2021-01-12 00:10] VITALS: BP 131/77
[2021-01-12 05:00] VITALS: BP 124/75
[2021-01-12 05:38] LABS: Basophils # (auto) 0.1 10 ^3/uL (0-0.2); Basophils % (auto) 0.9 % (0.0-2.0); Eosinophils # (auto) 0.1 10 ^3/uL (0-0.8); Eosinophils % (auto) 2.4 % (0.0-7.0); Hematocrit 33.6 % (41.0-53.0); Hemoglobin 11.8 g/dL (13.5-17.5); Lymphocytes # (auto) 0.8 10 ^3/uL (0.4-5.4); Lymphocytes % (auto) 13.7 % (10.0-50.0); Mean Corpuscular Hemoglobin 32.8 pg (28.0-32.0); Mean Corpuscular Hgb Conc. 35.3 g/dL (32.0-36.0); Mean Corpuscular Volume 92.9 fL (80.0-100.0); Monocytes # (auto) 0.4 10 ^3/uL (0-1.3); Monocytes % (auto) 7.5 % (0.0-12.0); Neutrophils # (auto) 4.5 10 ^3/uL (1.6-8.6); Neutrophils % (auto) 75.5 % (37.0-80.0); Nucleated Red Blood Cells % 0.1 %; Platelet Count (auto) 179 10^3/uL (140-450); Red Blood Cells 3.62 10^6/uL (4.5-5.90); Red Cell Distribution Width 17.8 % (11.8-14.3); White Blood Cell 5.9 10^3/uL (4.4-10.8)
[2021-01-12] MEDS: CLINDAMYCIN 600MG IV 50 ML IV SCH ×2 (05:44→14:06)
[2021-01-12 05:50] LABS: Albumin 3.3 g/dL (3.4-5.0); Calcium 8.9 mg/dL (8.5-10.1); Potassium 3.6 mmol/L (3.5-5.1)
[2021-01-12 05:56] LABS: BUN/Creatinine Ratio 30.4; Bilirubin, Total 0.4 mg/dL (0.2-1.0); Total Protein 6.3 g/dL (6.4-8.2)
[2021-01-12 09:00] VITALS: BP 154/65
[2021-01-12] MEDS: FLUCONAZOLE 200MG/100ML 100 ML IV SCH (09:32)
[2021-01-12] MEDS: PANTOPRAZOLE 40 MG TAB PO SCH (09:32)
[2021-01-12] MEDS: ALLOPURINOL 100 MG TAB PO SCH (09:33)
[2021-01-12] MEDS: amLODIPine BESYLATE 5 MG TAB PO SCH (09:33)
[2021-01-12] MEDS: GEMFIBROZIL 600 MG TAB PO SCH (09:34)
[2021-01-12] MEDS: FINASTERIDE 5 MG TAB PO SCH (09:36)
[2021-01-12] MEDS: SERTRALINE HCL 50 MG TAB PO SCH (09:37)
[2021-01-12] MEDS ORDERED: ENOXAPARIN SOD 40 MG/0.4 ML SYRINGE SC SCH (10:00)
[2021-01-12 11:59] LABS: Urine Bacteria NONE SEEN /hpf (None Seen); Urine Blood Negative /uL (Negative); Urine WBC <1 /hpf (0 - 3)
[2021-01-12 12:42] VITALS: BP 138/63
[2021-01-12] MEDS ORDERED: NYSTATIN TOPICAL POWDER 15GM TOP ONE (15:00)
[2021-01-12 16:31] VITALS: BP 124/71
[2021-01-12] MEDS: TAMSULOSIN HYDROCHLORIDE 0.4 MG CAP PO SCH (17:44)
[2021-01-12] MEDS: HYDROcodone-ACET 5/325MG TAB PO PRN (20:36)
[2021-01-12] MEDS ORDERED: cefTRIAXone 1GM/50ML D5W 50 ML IV SCH (21:00)
[2021-01-12] MEDS: NYSTATIN TOPICAL POWDER 15GM TOP SCH (21:26)
[2021-01-12] MEDS: ceFAZolin 1GM/50ML 50 ML IV SCH (21:26)
[2021-01-12 22:00] VITALS: BP_SYST 127; BP_SYST 145; BP_DIAS 69; BP_DIAS 80
[2021-01-13 05:00] VITALS: BP 128/57
[2021-01-13] MEDS: ceFAZolin 1GM/50ML 50 ML IV SCH ×3 (05:43→20:42)
[2021-01-13 09:00] VITALS: BP 116/70
[2021-01-13] MEDS: FLUCONAZOLE 200MG/100ML 100 ML IV SCH (09:33)
[2021-01-13] MEDS: GEMFIBROZIL 600 MG TAB PO SCH (09:34)
[2021-01-13] MEDS: FINASTERIDE 5 MG TAB PO SCH (09:34)
[2021-01-13] MEDS: amLODIPine BESYLATE 5 MG TAB PO SCH (09:34)
[2021-01-13] MEDS: SERTRALINE HCL 50 MG TAB PO SCH (09:35)
[2021-01-13] MEDS: ALLOPURINOL 100 MG TAB PO SCH (09:35)
[2021-01-13] MEDS: PANTOPRAZOLE 40 MG TAB PO SCH ×2 (09:35→20:43)
[2021-01-13] MEDS: NYSTATIN TOPICAL POWDER 15GM TOP SCH ×2 (09:35→20:43)
[2021-01-13] MEDS: HYDROcodone-ACET 5/325MG TAB PO PRN (09:43)
[2021-01-13] MEDS ORDERED: ONDANSETRON HCL 4 MG/2 ML VIAL IV PRN (11:45)
[2021-01-13 13:00] VITALS: BP 128/90
[2021-01-13 17:00] VITALS: BP 126/59
[2021-01-13] MEDS: TAMSULOSIN HYDROCHLORIDE 0.4 MG CAP PO SCH (17:40)
[2021-01-13] MEDS: SUCRALFATE 1 GM/10 ML ORAL SUSP PO SCH ×2 (17:40→20:43)
[2021-01-13 18:42] LABS: INR 1.02 (0.9-1.15)
[2021-01-13 21:39] VITALS: BP 126/73
[2021-01-14] MEDS: SUCRALFATE 1 GM/10 ML ORAL SUSP PO SCH ×3 (05:18→16:30)
[2021-01-14] MEDS: ceFAZolin 1GM/50ML 50 ML IV SCH ×2 (05:18→13:29)
[2021-01-14 05:22] VITALS: BP 110/71
[2021-01-14 06:33] LABS: Basophils # (auto) 0.1 10 ^3/uL (0-0.2); Basophils % (auto) 1.1 % (0.0-2.0); Eosinophils # (auto) 0.1 10 ^3/uL (0-0.8); Hematocrit 33.4 % (41.0-53.0); Hemoglobin 11.9 g/dL (13.5-17.5); Lymphocytes # (auto) 0.6 10 ^3/uL (0.4-5.4); Mean Corpuscular Hemoglobin 32.7 pg (28.0-32.0); Mean Corpuscular Hgb Conc. 35.5 g/dL (32.0-36.0); Monocytes # (auto) 0.1 10 ^3/uL (0-1.3); Neutrophils # (auto) 3.8 10 ^3/uL (1.6-8.6); Neutrophils % (auto) 79.9 % (37.0-80.0); Nucleated Red Blood Cells % 0.4 %; Platelet Count (auto) 185 10^3/uL (140-450); Red Blood Cells 3.63 10^6/uL (4.5-5.90); Red Cell Distribution Width 17.3 % (11.8-14.3); White Blood Cell 4.7 10^3/uL (4.4-10.8)
[2021-01-14 06:54] LABS: Potassium 3.5 mmol/L (3.5-5.1)
[2021-01-14 07:09] LABS: BUN/Creatinine Ratio 28.2; Calcium 9.2 mg/dL (8.5-10.1)
[2021-01-14] MEDS ORDERED: SODIUM CHLORIDE LOCK 10 ML ONE (07:59)
[2021-01-14] MEDS ORDERED: LIDOCAINE VISCOUS 2% 15ML UD ONE (07:59)
[2021-01-14] MEDS ORDERED: MIDAZOLAM HCL 5 MG/ML-1ML VIAL ONE (08:00)
[2021-01-14] MEDS ORDERED: diphenhdrAMINE HCL 50 MG/1 ML VL ONE (08:00)
[2021-01-14] MEDS ORDERED: fentaNYL CITRATE 100 MCG/2 ML VL ONE (08:00)
[2021-01-14 09:00] VITALS: BP 124/72
[2021-01-14] MEDS: FLUCONAZOLE 200MG/100ML 100 ML IV SCH (10:08)
[2021-01-14] MEDS: GEMFIBROZIL 600 MG TAB PO SCH (10:10)
[2021-01-14] MEDS: ALLOPURINOL 100 MG TAB PO SCH (10:10)
[2021-01-14] MEDS: amLODIPine BESYLATE 5 MG TAB PO SCH (10:10)
[2021-01-14] MEDS: FINASTERIDE 5 MG TAB PO SCH (10:11)
[2021-01-14] MEDS: SERTRALINE HCL 50 MG TAB PO SCH (10:11)
[2021-01-14] MEDS: PANTOPRAZOLE 40 MG TAB PO SCH (10:11)
[2021-01-14] MEDS: NYSTATIN TOPICAL POWDER 15GM TOP SCH (10:12)
[2021-01-14 12:46] VITALS: BP 124/68
[2021-01-14 15:45] VITALS: BP 124/72
[2021-01-14 17:00] VITALS: BP 118/73
== END 2021-01-14 17:00 | disposition home or self-care (01) | DRG 603 ==
LOC: ER 14:17 → OVERFLOW 21:34 → WEST WING 22:52
PROVIDERS: ADMIT Nurse Practitioner; ATTEND Internal Medicine
DX: L03.314 Cellulitis of groin (principal); B37.49 Other urogenital candidiasis; B37.89 Other sites of candidiasis; J96.10 Chronic respiratory failure, unspecified whether with hypoxia or hypercapnia; I50.32 Chronic diastolic (congestive) heart failure; K61.0 Anal abscess; L03.315 Cellulitis of perineum; Z20.822 Contact with and (suspected) exposure to COVID-19; J44.9 Chronic obstructive pulmonary disease, unspecified; E66.9 Obesity, unspecified; E78.5 Hyperlipidemia, unspecified; F32.9 Major depressive disorder, single episode, unspecified; K21.9 Gastro-esophageal reflux disease without esophagitis; M10.9 Gout, unspecified; M19.90 Unspecified osteoarthritis, unspecified site; I11.0 Hypertensive heart disease with heart failure; N40.0 Benign prostatic hyperplasia without lower urinary tract symptoms; Z82.49 Family history of ischemic heart disease and other diseases of the circulatory system; Z87.442 Personal history of urinary calculi; Z68.26 Body mass index [BMI] 26.0-26.9, adult
CPT/HCPCS: 36415; 71046; 74177; 80048; 80053; 81001; 83690; 83735; 85025; 85610; 87040; 87077; 87186; 87205; 87426; 93005; 96361; 96365; 96367; G0378; J0690; J0696; J1450; J2250; J2405; J3490

== ENCOUNTER → 2021-06-16 | Outpatient (CLI) | payer OTHER ==
[~2021-06-16] MED LIST changes: +CYAN100061 PO; +FOLI1TAB6 PO; +GEMF-19 PO; -GEMF600T7 PO; +HYDR200T36 PO; -LACT10CA2 OR; +LACT10CA2 PO; +LATA0.0020 EACHEYE; -LISI-648 OR; +LISI-716 PO; +METH2.5T PO; +PANT40T PO; +POTA-180 PO; -TAM04C OR; +TAM04C PO
[2021-06-16 10:20] LABS: Basophils # (auto) 0.1 10 ^3/uL (0-0.2); Basophils % (auto) 0.9 % (0.0-2.0); Eosinophils # (auto) 0.1 10 ^3/uL (0-0.8); Eosinophils % (auto) 1.6 % (0.0-7.0); Hematocrit 37.8 % (41.0-53.0); Hemoglobin 13.2 g/dL (13.5-17.5); Lymphocytes # (auto) 0.6 10 ^3/uL (0.4-5.4); Lymphocytes % (auto) 9.1 % (10.0-50.0); Mean Corpuscular Hemoglobin 32.7 pg (28.0-32.0); Mean Corpuscular Hgb Conc. 34.8 g/dL (32.0-36.0); Mean Corpuscular Volume 94.1 fL (80.0-100.0); Monocytes # (auto) 0.2 10 ^3/uL (0-1.3); Monocytes % (auto) 2.7 % (0.0-12.0); Neutrophils # (auto) 5.8 10 ^3/uL (1.6-8.6); Neutrophils % (auto) 85.7 % (37.0-80.0); Nucleated Red Blood Cells % 0.1 %; Red Blood Cells 4.02 10^6/uL (4.5-5.90); Red Cell Distribution Width 15.6 % (11.8-14.3); White Blood Cell 6.7 10^3/uL (4.4-10.8)
[2021-06-16 10:38] LABS: Albumin 3.6 g/dL (3.4-5.0); Calcium 9.1 mg/dL (8.5-10.1)
[2021-06-16 10:39] LABS: INR 1.05 (0.9-1.15); Partial Thromboplastin Time 30.4 sec (23.6-33.0)
[2021-06-16 10:41] LABS: BUN/Creatinine Ratio 32.3; Bilirubin, Total 0.6 mg/dL (0.2-1.0); Total Protein 7.2 g/dL (6.4-8.2)
[2021-06-16 13:25] LABS: Potassium 2.9 mmol/L (3.5-5.1)
[2021-06-19 10:29] LABS: Urine Bacteria NONE SEEN /hpf (None Seen); Urine Blood Negative /uL (Negative); Urine Specific Gravity 1.017 (1.001-1.035); Urine WBC 3 /hpf (0 - 3)
== END | disposition home or self-care (01) ==
LOC: LAB 10:04
PROVIDERS: ATTEND Internal Medicine
DX: Z01.812 Encounter for preprocedural laboratory examination (principal); I50.32 Chronic diastolic (congestive) heart failure
CPT/HCPCS: 36415; 80053; 81001; 85025; 85610; 85730

== ENCOUNTER 2021-06-19 09:51 | Day surgery (SDC) | payer OTHER ==
[~2021-06-19] VITALS: Ht 157.5 cm; Wt 54.4 kg
[~2021-06-19 09:51] MED LIST changes: -AML5T PO; -FINA5TAB4 PO; -HYOS0.12 OR; -LOP2C PO; -PANT40TA2 PO
[2021-06-19] MEDS ORDERED: VANCOMYCIN 1GM/250ML 250 ML IV ONE ×2 (10:41→10:45)
[2021-06-19] MEDS ORDERED: MIDAZOLAM HCL 2MG/2ML 2ml VIAL (1mg/ml) ONE (11:50)
[2021-06-19] MEDS ORDERED: fentaNYL CITRATE 100 MCG/2 ML VL ONE (11:50)
[2021-06-19] MEDS ORDERED: VANCOMYCIN HCL 1000 MG VL ONE (11:56)
[2021-06-19] MEDS ORDERED: LIDOCAINE 2%HCL (LOCAL ANESTH.) INJ 20ML MDV ONE (11:56)
== END 2021-06-19 15:22 | disposition home or self-care (01) ==
LOC: CATH 09:51
PROVIDERS: ATTEND Internal Medicine
DX: Z45.010 Encounter for checking and testing of cardiac pacemaker pulse generator [battery] (principal); I49.5 Sick sinus syndrome; J44.9 Chronic obstructive pulmonary disease, unspecified; F32.9 Major depressive disorder, single episode, unspecified; F41.9 Anxiety disorder, unspecified; F99 Mental disorder, not otherwise specified; Z20.822 Contact with and (suspected) exposure to COVID-19; Z88.0 Allergy status to penicillin; Z85.46 Personal history of malignant neoplasm of prostate; Z87.891 Personal history of nicotine dependence
CPT/HCPCS: 33208; C1785; J2250; J3010; J3370; U0003; 99152; 99153

== ENCOUNTER → 2021-10-18 | Outpatient (CLI) | payer MEDICARE, OTHER ==
[2021-10-18 12:55] LABS: Basophils # (auto) 0.1 10 ^3/uL (0-0.2); Basophils % (auto) 2.1 % (0.0-2.0); Eosinophils # (auto) 0.3 10 ^3/uL (0-0.8); Eosinophils % (auto) 6.1 % (0.0-7.0); Hematocrit 39.9 % (41.0-53.0); Hemoglobin 13.9 g/dL (13.5-17.5); Lymphocytes # (auto) 0.9 10 ^3/uL (0.4-5.4); Mean Corpuscular Hemoglobin 31.1 pg (28.0-32.0); Mean Corpuscular Hgb Conc. 34.8 g/dL (32.0-36.0); Mean Corpuscular Volume 89.4 fL (80.0-100.0); Monocytes # (auto) 0.3 10 ^3/uL (0-1.3); Monocytes % (auto) 7.3 % (0.0-12.0); Neutrophils # (auto) 3.1 10 ^3/uL (1.6-8.6); Neutrophils % (auto) 65.5 % (37.0-80.0); Nucleated Red Blood Cells % 0.1 %; Red Blood Cells 4.47 10^6/uL (4.5-5.90); Red Cell Distribution Width 13.9 % (11.8-14.3); White Blood Cell 4.7 10^3/uL (4.4-10.8)
[2021-10-18 14:37] LABS: Potassium 3.5 mmol/L (3.5-5.1)
[2021-10-18 14:46] LABS: BUN/Creatinine Ratio 26.1; Bilirubin, Total 0.5 mg/dL (0.2-1.0); Calcium 9.5 mg/dL (8.5-10.1); Total Protein 7.7 g/dL (6.4-8.2); Uric Acid 7.7 mg/dL (3.5-7.2)
== END | disposition home or self-care (01) ==
LOC: LAB 09:13
PROVIDERS: ATTEND Student in an Organized Health Care Education/Training Program
DX: Z01.812 Encounter for preprocedural laboratory examination (principal); I10 Essential (primary) hypertension; Z79.899 Other long term (current) drug therapy
CPT/HCPCS: 36415; 80053; 80061; 83036; 84550; 85025

== ENCOUNTER → 2021-11-21 | Outpatient (CLI) | payer MEDICARE, OTHER | END | disposition home or self-care (01) | LOC: XY 09:59 | PROVIDERS: ATTEND Podiatrist | DX: I77.9 Disorder of arteries and arterioles, unspecified (principal) | CPT/HCPCS: 93925 ==

== ENCOUNTER → 2021-12-13 | Outpatient (CLI) | payer MEDICARE, OTHER ==
[2021-12-13 09:15] LABS: Basophils # (auto) 0.1 10 ^3/uL (0-0.2); Basophils % (auto) 0.9 % (0.0-2.0); Eosinophils # (auto) 0.3 10 ^3/uL (0-0.8); Hematocrit 40.6 % (41.0-53.0); Hemoglobin 14.2 g/dL (13.5-17.5); Lymphocytes # (auto) 0.8 10 ^3/uL (0.4-5.4); Lymphocytes % (auto) 10.8 % (10.0-50.0); Mean Corpuscular Hgb Conc. 34.9 g/dL (32.0-36.0); Mean Corpuscular Volume 88.8 fL (80.0-100.0); Monocytes # (auto) 0.5 10 ^3/uL (0-1.3); Monocytes % (auto) 7.1 % (0.0-12.0); Neutrophils % (auto) 77.2 % (37.0-80.0); Nucleated Red Blood Cells % 0.1 %; Red Blood Cells 4.57 10^6/uL (4.5-5.90); Urine Bacteria NONE SEEN /hpf (None Seen); Urine Blood Negative /uL (Negative); Urine Hyaline Cast FEW /lpf (0 - 2); Urine Specific Gravity 1.015 (1.001-1.035); Urine WBC 1 /hpf (0 - 3); White Blood Cell 7.7 10^3/uL (4.4-10.8)
[2021-12-13 09:25] LABS: INR 1.05 (0.9-1.15); Partial Thromboplastin Time 29.6 sec (23.6-33.0)
[2021-12-13 10:03] LABS: Potassium 3.4 mmol/L (3.5-5.1)
[2021-12-13 10:11] LABS: BUN/Creatinine Ratio 25.8; Bilirubin, Total 0.8 mg/dL (0.2-1.0); Calcium 9.2 mg/dL (8.5-10.1); Total Protein 7.7 g/dL (6.4-8.2)
== END | disposition home or self-care (01) ==
LOC: LAB 08:08
PROVIDERS: ATTEND Orthopaedic Surgery Adult Reconstructive Orthopaedic Surgery
DX: Z01.812 Encounter for preprocedural laboratory examination (principal); R79.1 Abnormal coagulation profile
CPT/HCPCS: 36415; 80053; 81001; 85025; 85610; 85730

== ENCOUNTER 2021-12-18 06:11 | Inpatient (IN) | payer OTHER ==
[2021-12-18] VITALS (11 sets, daily range): BP systolic 115–145; BP diastolic 69–89
[~2021-12-18] VITALS: Ht 157.5 cm; Wt 78.9 kg
[~2021-12-18 06:11] MED LIST changes: -HYDR200T36 PO; -LACT10CA2 PO; -METH2.5T PO; -PANT40T PO; -POTA-180 PO
[2021-12-18] MEDS: BUPIVACAINE W/ EPINEPH 0.25% INJ 50ML MDV ONE ×2 (06:37→09:00)
[2021-12-18] MEDS ORDERED: TRANEXAMIC ACID 20 ML ONE (06:37)
[2021-12-18] MEDS ORDERED: VANCOMYCIN HCL 1000 MG VL ONE ×2 (06:47→06:59)
[2021-12-18] MEDS: KETOROLAC TROMETH 30 MG/ML 1ML VIAL ONE ×2 (06:47→09:00)
[2021-12-18] MEDS ORDERED: MORPHINE SULF PF 5 MG/10 ML VIAL ONE ×2 (06:55→07:08)
[2021-12-18] MEDS ORDERED: TETRACAINE 1% INJ 2 ML VIAL IJ ONE (07:24)
[2021-12-18] MEDS ORDERED: fentaNYL CITRATE 100 MCG/2 ML VL ONE (07:25)
[2021-12-18] MEDS ORDERED: MIDAZOLAM HCL 2MG/2ML 2ml VIAL (1mg/ml) ONE ×3 (07:25→08:17)
[2021-12-18] MEDS ORDERED: DexAMETHasone SOD PHOS 10MG/1ML VIAL INJ ONE (07:51)
[2021-12-18] MEDS ORDERED: diphenhdrAMINE HCL 50 MG/1 ML VL ONE (07:51)
[2021-12-18] MEDS ORDERED: diphenhdrAMINE HCL 50 MG/1 ML VL IV PRN (08:15)
[2021-12-18] MEDS ORDERED: DexAMETHasone SOD PHOS 10MG/1ML VIAL INJ IV PRN (08:15)
[2021-12-18] MEDS ORDERED: NALBUPHINE HCL 10 MG/1ml INJECTION SUBCUT ONE (08:15)
[2021-12-18] MEDS ORDERED: NALOXONE HCL 0.4 MG/ML VIAL IV PRN (08:15)
[2021-12-18] MEDS ORDERED: ePHEDrine SULFATE 50 MG/ML AMP IV PRN (08:15)
[2021-12-18] MEDS ORDERED: ONDANSETRON HCL 4 MG/2 ML VIAL IV PRN (08:15)
[2021-12-18] MEDS ORDERED: LABETALOL HCL 5 MG/ML 4ML SYRINGE IV PRN (08:15)
[2021-12-18] MEDS ORDERED: MIDAZOLAM HCL 2MG/2ML 2ml VIAL (1mg/ml) IV PRN (08:15)
[2021-12-18] MEDS ORDERED: HYDROmorphone HCL 2 MG/ML VL IV PRN ×2 (08:15→09:30)
[2021-12-18] MEDS: LACTATED RINGER'S 1,000 ML IV SCH ×2 (09:30→17:22)
[2021-12-18] MEDS ORDERED: ALBUTEROL SULF HFA 90MCG INH 200DOSE IN PRN (09:30)
[2021-12-18] MEDS ORDERED: NITROGLYCERIN 0.4 MG SL TAB SL PRN (09:30)
[2021-12-18] MEDS ORDERED: ACETAMINOPHEN 325 MG TAB PO PRN (09:30)
[2021-12-18] MEDS ORDERED: BISACODYL 5 MG EC TAB PO PRN (09:30)
[2021-12-18] MEDS ORDERED: MORPHINE SULFATE INJECTION 2 MG/ML SYRG IV PRN (09:30)
[2021-12-18] MEDS: ONDANSETRON HCL 4 MG/2 ML VIAL IV PRN ×2 (09:36→17:48)
[2021-12-18] MEDS ORDERED: METOCLOPRAMIDE HCL 5MG/ml INJ 2ml VIAL IV PRN (09:45)
[2021-12-18] MEDS ORDERED: METOCLOPRAMIDE HCL 5MG/ml INJ 2ml VIAL ONE (09:52)
[2021-12-18] MEDS: PANTOPRAZOLE 40 MG TAB PO SCH (10:00)
[2021-12-18] MEDS: CYANOCOBALAMIN 500 MCG TAB PO SCH (10:00)
[2021-12-18] MEDS: amLODIPine BESYLATE 5 MG TAB PO SCH (10:00)
[2021-12-18] MEDS: TAMSULOSIN HYDROCHLORIDE 0.4 MG CAP PO SCH (10:00)
[2021-12-18] MEDS: ENOXAPARIN SOD 40 MG/0.4 ML SYRINGE SC SCH (10:00)
[2021-12-18] MEDS: LATANOPROST 0.005 % OPTH(EYE) SOL 2.5ML EACHEYE SCH ×2 (10:00→21:34)
[2021-12-18] MEDS: DOCUSATE SOD 100 MG CAP PO SCH ×2 (10:00→21:35)
[2021-12-18] MEDS ORDERED: METOCLOPRAMIDE HCL 5MG/ml INJ 2ml VIAL IV ONE (10:00)
[2021-12-18] MEDS: HYOSCYAMINE SULF 0.125 MG ODT TAB PO SCH (10:00)
[2021-12-18] MEDS: FINASTERIDE 5 MG TAB PO SCH (10:00)
[2021-12-18] MEDS ORDERED: LOPERAMIDE HCL 2 MG CAP/TAB PO PRN (10:30)
[2021-12-18] MEDS ORDERED: ONDANSETRON HCL 4 MG/2 ML VIAL ONE (10:36)
[2021-12-18] MEDS ORDERED: ONDANSETRON HCL 4 MG/2 ML VIAL IV ONE (10:45)
[2021-12-18] MEDS ORDERED: ALBUTEROL SULF 2.5 MG/0.5ML(0.5%) NEB SOLN NEB PRN (11:30)
[2021-12-18] MEDS: SODIUM CHLOR 0.9% PF (SALINE LOCK) 10ML VIAL/SYR IV SCH ×2 (14:00→21:34)
[2021-12-18] MEDS: GEMFIBROZIL 600 MG TAB PO SCH (16:51)
[2021-12-18] MEDS: VANCOMYCIN 1GM/250ML 250 ML IV SCH (21:34)
[2021-12-18] MEDS: HYDROcodone-ACET 5/325MG TAB PO PRN (21:35)
[2021-12-19] VITALS (15 sets, daily range): BP systolic 110–136; BP diastolic 59–75
[2021-12-19] MEDS: ONDANSETRON HCL 4 MG/2 ML VIAL IV PRN ×2 (03:34→21:08)
[2021-12-19] MEDS: HYDROcodone-ACET 5/325MG TAB PO PRN ×2 (03:35→21:08)
[2021-12-19] MEDS: LACTATED RINGER'S 1,000 ML IV SCH ×3 (05:30→15:17)
[2021-12-19] MEDS: SODIUM CHLOR 0.9% PF (SALINE LOCK) 10ML VIAL/SYR IV SCH ×3 (05:40→21:07)
[2021-12-19 05:44] LABS: Hemoglobin 12.1 g/dL (13.5-17.5)
[2021-12-19 06:00] LABS: Albumin 3.3 g/dL (3.4-5.0); Calcium 8.8 mg/dL (8.5-10.1); Potassium 3.6 mmol/L (3.5-5.1)
[2021-12-19 06:04] LABS: BUN/Creatinine Ratio 31.2; Bilirubin, Total 0.4 mg/dL (0.2-1.0); Total Protein 6.8 g/dL (6.4-8.2)
[2021-12-19] MEDS: LISINOPRIL 10 MG TAB PO SCH (06:27)
[2021-12-19 09:36] LABS: Eosinophils # (auto) 0 10 ^3/uL (0-0.8); Eosinophils % (auto) 0.2 % (0.0-7.0); Monocytes # (auto) 0.7 10 ^3/uL (0-1.3); Red Blood Cells 3.86 10^6/uL (4.5-5.90)
[2021-12-19 09:38] LABS: Basophils # (auto) 0.1 10 ^3/uL (0-0.2); Basophils % (auto) 0.7 % (0.0-2.0); Hematocrit 33.7 % (41.0-53.0); Hemoglobin 12.1 g/dL (13.5-17.5); Lymphocytes # (auto) 0.4 10 ^3/uL (0.4-5.4); Lymphocytes % (auto) 4.1 % (10.0-50.0); Mean Corpuscular Hemoglobin 31.4 pg (28.0-32.0); Mean Corpuscular Volume 87.3 fL (80.0-100.0); Neutrophils # (auto) 8.7 10 ^3/uL (1.6-8.6); Red Cell Distribution Width 13.5 % (11.8-14.3); White Blood Cell 9.9 10^3/uL (4.4-10.8)
[2021-12-19] MEDS: PANTOPRAZOLE 40 MG TAB PO SCH (10:00)
[2021-12-19] MEDS: HYOSCYAMINE SULF 0.125 MG ODT TAB PO SCH (10:00)
[2021-12-19] MEDS: SERTRALINE HCL 50 MG TAB PO SCH (10:00)
[2021-12-19] MEDS: LATANOPROST 0.005 % OPTH(EYE) SOL 2.5ML EACHEYE SCH ×2 (10:00→21:07)
[2021-12-19] MEDS: DOCUSATE SOD 100 MG CAP PO SCH ×2 (10:00→21:07)
[2021-12-19] MEDS: FOLIC ACID 1 MG TAB PO SCH (10:00)
[2021-12-19] MEDS: ENOXAPARIN SOD 40 MG/0.4 ML SYRINGE SC SCH (10:00)
[2021-12-19] MEDS: amLODIPine BESYLATE 5 MG TAB PO SCH (10:00)
[2021-12-19] MEDS: VANCOMYCIN 1GM/250ML 250 ML IV SCH (10:00)
[2021-12-19] MEDS: hydrOXYchloroQUINE SULFATE 200 MG TAB PO SCH ×2 (10:00→21:07)
[2021-12-19] MEDS: CYANOCOBALAMIN 500 MCG TAB PO SCH (10:00)
[2021-12-19] MEDS: FINASTERIDE 5 MG TAB PO SCH (10:00)
[2021-12-19] MEDS: TAMSULOSIN HYDROCHLORIDE 0.4 MG CAP PO SCH (10:00)
[2021-12-19] MEDS: HYDROmorphone HCL 2 MG/ML VL IV PRN ×2 (12:28→23:48)
[2021-12-19] MEDS: GEMFIBROZIL 600 MG TAB PO SCH (18:00)
[2021-12-20 05:00] VITALS: BP 118/57
[2021-12-20] MEDS: SODIUM CHLOR 0.9% PF (SALINE LOCK) 10ML VIAL/SYR IV SCH ×2 (05:15→09:39)
[2021-12-20] MEDS: LISINOPRIL 10 MG TAB PO SCH (06:26)
[2021-12-20 06:34] LABS: Hematocrit 29.9 % (41.0-53.0)
[2021-12-20 09:00] VITALS: BP 118/66
[2021-12-20] MEDS: DOCUSATE SOD 100 MG CAP PO SCH (09:38)
[2021-12-20] MEDS: FOLIC ACID 1 MG TAB PO SCH (09:38)
[2021-12-20] MEDS: hydrOXYchloroQUINE SULFATE 200 MG TAB PO SCH (09:38)
[2021-12-20] MEDS: FINASTERIDE 5 MG TAB PO SCH (09:38)
[2021-12-20] MEDS: HYOSCYAMINE SULF 0.125 MG ODT TAB PO SCH (09:38)
[2021-12-20] MEDS: amLODIPine BESYLATE 5 MG TAB PO SCH (09:38)
[2021-12-20] MEDS: TAMSULOSIN HYDROCHLORIDE 0.4 MG CAP PO SCH (09:38)
[2021-12-20] MEDS: ENOXAPARIN SOD 40 MG/0.4 ML SYRINGE SC SCH (09:39)
[2021-12-20] MEDS: SERTRALINE HCL 50 MG TAB PO SCH (09:39)
[2021-12-20] MEDS: PANTOPRAZOLE 40 MG TAB PO SCH (09:39)
[2021-12-20] MEDS: CYANOCOBALAMIN 500 MCG TAB PO SCH (09:39)
[2021-12-20] MEDS: LATANOPROST 0.005 % OPTH(EYE) SOL 2.5ML EACHEYE SCH (10:00)
[2021-12-20] MEDS: HYDROcodone-ACET 5/325MG TAB PO PRN (10:53)
[2021-12-20] MEDS ORDERED: LEVO500T31 PO (10:58)
== END 2021-12-20 12:06 | disposition home health service (06) | DRG 470 ==
LOC: SUR 06:11 → TELE 09:21 → TELE-EAST 11:39
PROVIDERS: ADMIT Orthopaedic Surgery Adult Reconstructive Orthopaedic Surgery; ATTEND Internal Medicine
PROC: 8E0YXBZ Computer Assisted Procedure of Lower Extremity (ICD-10-PCS; 2021-12-18)
PROC: 0SRC0J9 Replacement of Right Knee Joint with Synthetic Substitute, Cemented, Open Approach (ICD-10-PCS; principal; 2021-12-18 07:29)
DX: M17.11 Unilateral primary osteoarthritis, right knee (principal); J96.10 Chronic respiratory failure, unspecified whether with hypoxia or hypercapnia; M06.9 Rheumatoid arthritis, unspecified; J44.9 Chronic obstructive pulmonary disease, unspecified; I10 Essential (primary) hypertension; E66.9 Obesity, unspecified; E78.5 Hyperlipidemia, unspecified; N40.0 Benign prostatic hyperplasia without lower urinary tract symptoms; Z95.0 Presence of cardiac pacemaker; M21.061 Valgus deformity, not elsewhere classified, right knee; Z20.822 Contact with and (suspected) exposure to COVID-19
CPT/HCPCS: 36415; 73562; 80053; 85014; 85018; 85025; 86850; 86900; 86901; 97110; 97116; 97163; 97530; G0378; J1100; J1885; J2250; J2405

== ENCOUNTER → 2022-01-02 | Outpatient (CLI) | payer OTHER ==
[~2022-01-02] MED LIST changes: -ALLO100T PO; +LEVO500T31 PO
[2022-01-02 14:06] LABS: Urine Bacteria NONE SEEN /hpf (None Seen); Urine Blood Negative /uL (Negative); Urine Specific Gravity 1.013 (1.001-1.035); Urine WBC <1 /hpf (0 - 3)
== END | disposition home or self-care (01) ==
LOC: LAB 12:58
PROVIDERS: ATTEND Internal Medicine
DX: N39.0 Urinary tract infection, site not specified (principal)
CPT/HCPCS: 81001; 87086

== ENCOUNTER → 2022-07-19 | Outpatient (CLI) | payer OTHER ==
[2022-07-19 09:06] LABS: Basophils # (auto) 0.1 10 ^3/uL (0-0.2); Basophils % (auto) 1.2 % (0.0-2.0); Eosinophils # (auto) 0.3 10 ^3/uL (0-0.8); Hematocrit 40.5 % (41.0-53.0); Hemoglobin 13.8 g/dL (13.5-17.5); Lymphocytes % (auto) 15.2 % (10.0-50.0); Mean Corpuscular Hemoglobin 28.9 pg (28.0-32.0); Mean Corpuscular Hgb Conc. 33.9 g/dL (32.0-36.0); Mean Corpuscular Volume 85.3 fL (80.0-100.0); Monocytes # (auto) 0.3 10 ^3/uL (0-1.3); Monocytes % (auto) 5.3 % (0.0-12.0); Neutrophils # (auto) 4.7 10 ^3/uL (1.6-8.6); Neutrophils % (auto) 73.3 % (37.0-80.0); Nucleated Red Blood Cells % 0.1 %; Red Blood Cells 4.75 10^6/uL (4.5-5.90); Red Cell Distribution Width 15.5 % (11.8-14.3); White Blood Cell 6.4 10^3/uL (4.4-10.8)
[2022-07-19 09:42] LABS: Albumin 3.9 g/dL (3.4-5.0); Calcium 8.9 mg/dL (8.5-10.1); Potassium 3.5 mmol/L (3.5-5.1)
[2022-07-19 09:48] LABS: BUN/Creatinine Ratio 28.2; Bilirubin, Total 0.4 mg/dL (0.2-1.0); Total Protein 7.4 g/dL (6.4-8.2); Uric Acid 9.9 mg/dL (3.5-7.2)
== END | disposition home or self-care (01) ==
LOC: LAB 08:34
PROVIDERS: ATTEND Internal Medicine
DX: I10 Essential (primary) hypertension (principal); E78.5 Hyperlipidemia, unspecified; E66.9 Obesity, unspecified; Z79.899 Other long term (current) drug therapy
CPT/HCPCS: 36415; 80053; 80061; 82274; 82306; 82607; 84443; 84550; 85025

== ENCOUNTER → 2023-02-12 | Outpatient (CLI) | payer OTHER ==
[~2023-02-12] MED LIST changes: -AMLO-496 PO; +AMLO1TAB23 PO; +FOLI-119 PO; -FOLI1TAB6 PO; -GEMF-19 PO; +GEMF-66 PO; -LISI-716 PO; +LISI10TA34 PO; -TAM04C PO; +TAMS-35 PO
[2023-02-12 07:37] LABS: Basophils # (auto) 0.1 10 ^3/uL (0-0.2); Basophils % (auto) 1.4 % (0.0-2.0); Eosinophils # (auto) 0.3 10 ^3/uL (0-0.8); Eosinophils % (auto) 4.6 % (0.0-7.0); Hematocrit 38.7 % (41.0-53.0); Hemoglobin 13.3 g/dL (13.5-17.5); Lymphocytes % (auto) 14.3 % (10.0-50.0); Mean Corpuscular Hemoglobin 29.8 pg (28.0-32.0); Mean Corpuscular Hgb Conc. 34.3 g/dL (32.0-36.0); Mean Corpuscular Volume 86.9 fL (80.0-100.0); Monocytes # (auto) 0.4 10 ^3/uL (0-1.3); Monocytes % (auto) 5.7 % (0.0-12.0); Nucleated Red Blood Cells % 0.4 %; Red Blood Cells 4.45 10^6/uL (4.5-5.90); Red Cell Distribution Width 13.9 % (11.8-14.3); White Blood Cell 6.7 10^3/uL (4.4-10.8)
[2023-02-12 08:07] LABS: Urine Bacteria FEW /hpf (None Seen); Urine Blood Negative /uL (Negative); Urine Hyaline Cast FEW /lpf (0 - 2); Urine Mucus FEW (None Seen); Urine Specific Gravity 1.016 (1.001-1.035); Urine WBC <1 /hpf (0 - 3)
[2023-02-12 08:35] LABS: Albumin 3.7 g/dL (3.4-5.0); Calcium 9.3 mg/dL (8.5-10.1); Potassium 3.4 mmol/L (3.5-5.1)
[2023-02-12 08:40] LABS: BUN/Creatinine Ratio 27.8 (10.0-20.0); Bilirubin, Total 0.3 mg/dL (0.2-1.0); Total Protein 7.4 g/dL (6.4-8.2)
[2023-02-12 08:43] LABS: Prostate Specific Antigen 0.44 ng/mL (0.0-4.0)
== END | disposition home or self-care (01) ==
LOC: LAB 07:22
PROVIDERS: ATTEND Internal Medicine
DX: I10 Essential (primary) hypertension (principal); E55.9 Vitamin D deficiency, unspecified; R35.1 Nocturia; Z79.899 Other long term (current) drug therapy
CPT/HCPCS: 36415; 80053; 80061; 81001; 82306; 82607; 84153; 84443; 85025

== ENCOUNTER 2023-03-14 10:10 | Emergency (ER) | payer OTHER ==
[~2023-03-14] VITALS: Ht 154.9 cm; Wt 86.0 kg
[2023-03-14 11:21] VITALS: BP 133/63
[2023-03-14] MEDS ORDERED: KETOROLAC TROMETH 30 MG/ML 1ML VIAL IM ONE (11:30)
[2023-03-14] MEDS ORDERED: methylPREDNISolone SOD SUCC 125 MG/2 ML VL IM ONE (11:30)
[2023-03-14 11:44] LABS: Basophils # (auto) 0.1 10 ^3/uL (0-0.2); Eosinophils # (auto) 0.3 10 ^3/uL (0-0.8); Eosinophils % (auto) 2.9 % (0.0-7.0); Hematocrit 40.6 % (41.0-53.0); Hemoglobin 14.2 g/dL (13.5-17.5); Lymphocytes % (auto) 10.7 % (10.0-50.0); Mean Corpuscular Hemoglobin 30.5 pg (28.0-32.0); Mean Corpuscular Hgb Conc. 34.9 g/dL (32.0-36.0); Mean Corpuscular Volume 87.4 fL (80.0-100.0); Monocytes # (auto) 0.6 10 ^3/uL (0-1.3); Monocytes % (auto) 6.5 % (0.0-12.0); Neutrophils # (auto) 7.3 10 ^3/uL (1.6-8.6); Neutrophils % (auto) 78.9 % (37.0-80.0); Nucleated Red Blood Cells % 0.1 %; Red Blood Cells 4.65 10^6/uL (4.5-5.90); Red Cell Distribution Width 14.8 % (11.8-14.3); White Blood Cell 9.3 10^3/uL (4.4-10.8)
[2023-03-14 12:01] LABS: BUN/Creatinine Ratio 21.1 (10.0-20.0); Calcium 8.6 mg/dL (8.5-10.1); Potassium 3.6 mmol/L (3.5-5.1); Uric Acid 9.6 mg/dL (3.5-7.2)
[2023-03-14] MEDS ORDERED: INDO50SU RE (12:42)
[2023-03-14] MEDS ORDERED: COLC1CAP PO (12:42)
== END 2023-03-14 12:49 | disposition home or self-care (01) ==
LOC: ER 10:10
DX: M10.9 Gout, unspecified (principal); J44.9 Chronic obstructive pulmonary disease, unspecified; K21.9 Gastro-esophageal reflux disease without esophagitis; E78.5 Hyperlipidemia, unspecified; I10 Essential (primary) hypertension; Z87.442 Personal history of urinary calculi; Z88.0 Allergy status to penicillin
CPT/HCPCS: 36415; 80048; 84550; 85025; 96372; 99284; J1885; J2930

== ENCOUNTER → 2023-11-18 | Outpatient (CLI) | payer BC, MEDICARE ==
[~2023-11-18] MED LIST changes: +COLC1CAP PO; +INDO50SU RE
[2023-11-18 09:03] LABS: Basophils # (auto) 0.1 10 ^3/uL (0-0.2); Basophils % (auto) 1.1 % (0.0-2.0); Eosinophils # (auto) 0.2 10 ^3/uL (0-0.8); Eosinophils % (auto) 3.1 % (0.0-7.0); Hematocrit 40.9 % (41.0-53.0); Hemoglobin 14.2 g/dL (13.5-17.5); Lymphocytes # (auto) 0.7 10 ^3/uL (0.4-5.4); Lymphocytes % (auto) 11.4 % (10.0-50.0); Mean Corpuscular Hemoglobin 30.4 pg (28.0-32.0); Mean Corpuscular Hgb Conc. 34.8 g/dL (32.0-36.0); Mean Corpuscular Volume 87.4 fL (80.0-100.0); Monocytes # (auto) 0.4 10 ^3/uL (0-1.3); Monocytes % (auto) 5.5 % (0.0-12.0); Neutrophils % (auto) 78.9 % (37.0-80.0); Red Blood Cells 4.68 10^6/uL (4.5-5.90); Red Cell Distribution Width 14.2 % (11.8-14.3); White Blood Cell 6.4 10^3/uL (4.4-10.8)
[2023-11-18 09:42] LABS: Alanine Aminotransferase 17 U/L (7-40); Albumin 4.6 g/dL (3.2-4.8); Alkaline Phosphatase 92 U/L (46-116); Anion Gap 10 (5-15); Aspartate Aminotransferase 21 U/L (13-40); BUN/Creatinine Ratio 20.6 (10.0-20.0); Blood Urea Nitrogen 26 mg/dL (9-23); CRP High Sensitivity 0.83 mg/dL (<1.0); Calcium 9.6 mg/dL (8.5-10.1); Carbon Dioxide 24 mmol/L (20-30); Chloride 106 mmol/L (98-107); Cholesterol 103 mg/dL (< 200); Glucose 92 mg/dL (74-106); HDL Cholesterol 40 mg/dL (40-59); LDL Cholesterol 35 mg/dL (< 100); Potassium 3.6 mmol/L (3.5-5.1); Sodium 140 mmol/L (136-145); Triglycerides 130 mg/dL (< 150)
[2023-11-18 09:43] LABS: Bilirubin, Total 0.6 mg/dL (0.2-1.0); Total Protein 7.1 g/dL (5.7-8.2)
[2023-11-18 10:01] LABS: Erythrocyte Sedimentation Rate 13 mm/hr (0-20)
[2023-11-18 10:26] LABS: Prostate Specific Antigen 0.17 ng/mL (0.0-4.0)
[2023-11-18 10:29] LABS: Free T4 (Free Thyroxine) 0.99 ng/dL (0.89-1.76)
[2023-11-18 10:34] LABS: Uric Acid 10.1 mg/dL (3.7-9.2)
[2023-11-19 07:06] LABS: Rheumatoid Arthritis Factor <10.0 IU/mL (<14.0)
[2023-11-20 19:06] LABS: CCP IgG/IgA Antibody 11 units (0-19)
== END | disposition home or self-care (01) ==
LOC: LAB 08:40
PROVIDERS: ATTEND Internal Medicine
DX: I12.9 Hypertensive chronic kidney disease with stage 1 through stage 4 chronic kidney disease, or unspecified chronic kidney disease (principal); N18.2 Chronic kidney disease, stage 2 (mild); N40.0 Benign prostatic hyperplasia without lower urinary tract symptoms; Z79.899 Other long term (current) drug therapy
CPT/HCPCS: 36415; 80053; 80061; 82306; 83036; 84153; 84439; 84443; 84550; 85025; 85652; 86141; 86200; 86431

== ENCOUNTER → 2024-03-23 | Outpatient (CLI) | payer MEDICARE | END | disposition home or self-care (01) | LOC: XYW 13:38 | PROVIDERS: ATTEND Internal Medicine | DX: I08.2 Rheumatic disorders of both aortic and tricuspid valves (principal); I47.29 Other ventricular tachycardia; E66.9 Obesity, unspecified; Z95.0 Presence of cardiac pacemaker | CPT/HCPCS: 93306 ==

== ENCOUNTER → 2024-04-29 | Outpatient (CLI) | payer MEDICARE ==
[~2024-04-29] VITALS: Ht 157.5 cm; Wt 113.4 kg
[2024-04-29] MEDS: ADENOSINE 95 MG in GIVE UN-DILUTED 0 ML IV ONE (10:50)
== END | disposition home or self-care (01) ==
LOC: XYW 08:59
PROVIDERS: ATTEND Internal Medicine
DX: I47.10 Supraventricular tachycardia, unspecified (principal)
CPT/HCPCS: 78452; 93017; A9500; J0153

== ENCOUNTER → 2024-09-02 | Outpatient (CLI) | payer MEDICARE ==
[2024-09-02 07:44] LABS: Basophils # (auto) 0.1 10 ^3/uL (0-0.2); Basophils % (auto) 1.2 % (0.0-2.0); Eosinophils # (auto) 0.4 10 ^3/uL (0-0.8); Eosinophils % (auto) 5.7 % (0.0-7.0); Hematocrit 40.8 % (41.0-53.0); Hemoglobin 14.2 g/dL (13.5-17.5); Lymphocytes # (auto) 0.9 10 ^3/uL (0.4-5.4); Lymphocytes % (auto) 13.1 % (10.0-50.0); Mean Corpuscular Hemoglobin 31.2 pg (28.0-32.0); Mean Corpuscular Hgb Conc. 34.9 g/dL (32.0-36.0); Mean Corpuscular Volume 89.5 fL (80.0-100.0); Monocytes # (auto) 0.4 10 ^3/uL (0-1.3); Monocytes % (auto) 5.8 % (0.0-12.0); Neutrophils # (auto) 4.9 10 ^3/uL (1.6-8.6); Neutrophils % (auto) 74.2 % (37.0-80.0); Platelet Count (auto) 190 10^3/uL (140-450); Red Blood Cells 4.56 10^6/uL (4.5-5.90); White Blood Cell 6.6 10^3/uL (4.4-10.8)
[2024-09-02 08:17] LABS: Alanine Aminotransferase 18 U/L (7-40); Albumin 4.4 g/dL (3.2-4.8); Alkaline Phosphatase 104 U/L (46-116); Anion Gap 10 (5-15); Aspartate Aminotransferase 19 U/L (13-40); BUN/Creatinine Ratio 20.8 (10.0-20.0); Bilirubin, Total 0.6 mg/dL (0.2-1.0); Calcium 10.1 mg/dL (8.7-10.4); Carbon Dioxide 25 mmol/L (20-31); Chloride 105 mmol/L (98-107); Cholesterol 118 mg/dL (< 200); HDL Cholesterol 40 mg/dL (40-59); LDL Cholesterol 36 mg/dL (< 100); Sodium 140 mmol/L (136-145)
[2024-09-02 08:18] LABS: Total Protein 6.7 g/dL (5.7-8.2)
[2024-09-02 08:23] LABS: Blood Urea Nitrogen 26 mg/dL (9-23); Glucose 108 mg/dL (74-106); Potassium 3.4 mmol/L (3.5-5.1); Triglycerides 178 mg/dL (< 150)
[2024-09-02 09:01] LABS: Prostate Specific Antigen 0.07 ng/mL (0.0-4.0)
[2024-09-02 09:04] LABS: Free T4 (Free Thyroxine) 0.93 ng/dL (0.89-1.76)
[2024-09-02 09:05] LABS: T3 Total 1.12 ng/mL (0.60-1.81)
== END | disposition home or self-care (01) ==
LOC: LAB 07:21
PROVIDERS: ATTEND Internal Medicine
DX: I10 Essential (primary) hypertension (principal); Z79.899 Other long term (current) drug therapy
CPT/HCPCS: 36415; 80053; 80061; 82306; 83036; 84153; 84439; 84443; 84480; 85025